=== PATIENT | male | born 1940 | race Caucasian/White ===

== ENCOUNTER 2017-08-03 16:09 | Inpatient (IN) | payer MEDICARE, OTHER ==
[2017-08-03] MEDS: CEFEPIME 2GM/50 ML (PMX) 50 ML IVPB (16:30)
[2017-08-03] MEDS ORDERED: ACETAMINOPHEN 325 MG TAB PO (17:00)
[2017-08-03] MEDS ORDERED: ONDANSETRON 4 MG INJ IV (17:00)
[2017-08-03] MEDS: ACETAMINOPHEN 325 MG TAB PO (17:32)
[2017-08-03] MEDS: SOD CHLORIDE 0.9% 1,000 ML IV (17:33)
[2017-08-03 17:41] LABS: WHITE BLOOD COUNT 40.7 10^3/ul (4.8-10.8)
[2017-08-03 17:41] LABS: ABNORMAL IP MESSAGE 1; HEMATOCRIT 31.2 % (42.0-52.0); HEMOGLOBIN 10.2 g/dl (14.0-18.0); MEAN CORPUSCULAR HEMOGLOBIN 29.2 pg (29.0-33.0); MEAN CORPUSCULAR HGB CONC 32.7 g/dl (32.0-37.0); MEAN CORPUSCULAR VOLUME 89.4 fl (82.0-101.0); MEAN PLATELET VOLUME 8.7 fl (7.4-10.4); PLATELET COUNT 124 10^3/UL (140-415); POSITIVE DIFF @See below; RED BLOOD COUNT 3.49 10^6/ul (4.70-6.10); RED CELL DISTRIBUTION WIDTH 15.2 % (11.5-14.5)
[2017-08-03 17:54] LABS: ADD MAN DIFF? YES
[2017-08-03] MEDS: VANCOMYCIN 1 GM (PMX) 250 ML IVPB (18:00)
[2017-08-03] MEDS: SODIUM CHLORIDE 0.9% 1L BAG IV* (18:01)
[2017-08-03 18:02] LABS: ANION GAP 11 (8-16); BLOOD UREA NITROGEN 12 mg/dl (7-20); CARBON DIOXIDE 25 mmol/L (21-31); CHLORIDE 101 mmol/L (97-110); CREATININE 0.79 mg/dl (0.61-1.24); GLUCOSE 273 mg/dl (70-220); MAGNESIUM 1.6 mg/dl (1.7-2.5); PHOSPHORUS 2.6 mg/dl (2.5-4.9); POTASSIUM 4.3 mmol/L (3.5-5.1); SODIUM 133 mmol/L (135-144); URIC ACID 4.6 mg/dl (3.1-7.9)
[2017-08-03 18:10] LABS: LACTIC ACID 2.4 mmol/L (0.5-2.0)
[2017-08-03 18:20] LABS: TROPONIN-I < 0.010 ng/ml (0.000-0.120)
[2017-08-03 18:50] LABS: BAND NEUTROPHILS #M 0.8 10^3/ul (0.0-0.6); BAND NEUTROPHILS % (M) 2 % (0-4); PLATELET ESTIMATE DECREASED; PLATELET MORPHOLOGY COMMENT @See below; POIKILOCYTOSIS 1+ (0-0); SEG NEUT #M 40.2 10^3/ul (1.6-7.5); SEGMENTED NEUTROPHILS (M) % 98 % (39-77); SMUDGE%M 7 % (0-0)
[2017-08-03 21:42] LABS: LACTIC ACID 1.2 mmol/L (0.5-2.0)
[2017-08-03 23:19] LABS: LACTIC ACID 1.4 mmol/L (0.5-2.0)
[2017-08-03 23:33] LABS: CREATINE KINASE 31 IU/L (23-200)
[2017-08-03 23:44] LABS: CK INDEX 0.7; TROPONIN-I 0.017 ng/ml (0.000-0.120)
[2017-08-03 23:45] LABS: CK-MB < 0.22 ng/ml (0.0-2.4)
[2017-08-04] MEDS ORDERED: [UNRECOGNIZED DRUG - OTHER] PO
[2017-08-04 05:04] LABS: WHITE BLOOD COUNT 32.5 10^3/ul (4.8-10.8)
[2017-08-04 05:04] LABS: ABNORMAL IP MESSAGE 1; HEMATOCRIT 33.8 % (42.0-52.0); HEMOGLOBIN 10.6 g/dl (14.0-18.0); MEAN CORPUSCULAR HGB CONC 31.4 g/dl (32.0-37.0); MEAN CORPUSCULAR VOLUME 92.3 fl (82.0-101.0); MEAN PLATELET VOLUME 9.3 fl (7.4-10.4); PLATELET COUNT 112 10^3/UL (140-415); POSITIVE DIFF @See below; RED BLOOD COUNT 3.66 10^6/ul (4.70-6.10); RED CELL DISTRIBUTION WIDTH 15.2 % (11.5-14.5)
[2017-08-04 05:25] LABS: ADD MAN DIFF? YES
[2017-08-04 05:27] LABS: ALANINE AMINOTRANSFERASE 24 IU/L (13-69); ALBUMIN 2.8 g/dl (3.3-4.9); ALBUMIN/GLOBULIN RATIO 0.84; ALKALINE PHOSPHATASE 160 IU/L (42-121); ANION GAP 16 (8-16); ASPARTATE AMINO TRANSFERASE 21 IU/L (15-46); BILIRUBIN,INDIRECT 0.6 mg/dl (0-1.1); BILIRUBIN,TOTAL 0.6 mg/dl (0.2-1.3); BLOOD UREA NITROGEN 15 mg/dl (7-20); CALCIUM 8.3 mg/dl (8.4-10.2); CARBON DIOXIDE 23 mmol/L (21-31); CHLORIDE 109 mmol/L (97-110); POTASSIUM 5.5 mmol/L (3.5-5.1); SODIUM 142 mmol/L (135-144); TOTAL PROTEIN 6.1 g/dl (6.1-8.1)
[2017-08-04] MEDS: ACETAMINOPHEN 325 MG TAB PO (05:28)
[2017-08-04 05:30] LABS: CREATINE KINASE 30 IU/L (23-200)
[2017-08-04 05:36] LABS: CK INDEX 1.5; TROPONIN-I 0.018 ng/ml (0.000-0.120)
[2017-08-04 05:38] LABS: CK-MB 0.44 ng/ml (0.0-2.4); GLUCOSE 446 mg/dl (70-220)
[2017-08-04] MEDS: INSULIN ASPART [NOVOLOG] 3 ML PEN SC ×5 (06:22→21:00)
[2017-08-04] MEDS ORDERED: DEXTROSE 50% 50 ML SYRINGE IV ×2 (06:30)
[2017-08-04] MEDS ORDERED: GLUCAGON 1 MG INJ IM (06:30)
[2017-08-04] MEDS ORDERED: GLUCOSE GEL 15 GRAM TUBE BUCCAL (06:30)
[2017-08-04] MEDS ORDERED: GLUCOSE GEL 15 GRAM TUBE PO ×2 (06:30)
[2017-08-04 06:36] LABS: ANISOCYTOSIS 1+ (0-0); BAND NEUTROPHILS #M 0.6 10^3/ul (0.0-0.6); BAND NEUTROPHILS % (M) 2 % (0-4); BURR CELLS 1+ (0-0); EOSINOPHILS % (M) 2 % (0-7); LYMPHOCYTES #M 0.3 10^3/ul (0.8-2.9); LYMPHOCYTES % (M) 1 % (15-51); OVALOCYTES 1+ (0-0); PLATELET ESTIMATE DECREASED; POIKILOCYTOSIS 2+ (0-0); POLYCHROMASIA 1+ (0-0); SEG NEUT #M 31.1 10^3/ul (1.6-7.5); SEGMENTED NEUTROPHILS (M) % 95 % (39-77); SMUDGE%M 4 % (0-0)
[2017-08-04 06:40] LABS: CANCER ANTIGEN 19-9 < 1.4 U/ml (0.0-37.0)
[2017-08-04] MEDS ORDERED: VANCOMYCIN IV PER PHARMACY XX (08:00)
[2017-08-04] MEDS: SOD CHLORIDE 0.9% 100 ML (08:20)
[2017-08-04] MEDS: IODIXANOL LOCM 100 ML BTL (08:20)
[2017-08-04] MEDS: metFORMIN 500 MG TAB PO ×2 (09:34→18:09)
[2017-08-04] MEDS: SOLIFENACIN 5 MG TAB PO (09:34)
[2017-08-04] MEDS: METOPROLOL 25 MG TAB PO (09:35)
[2017-08-04] MEDS: TIMOLOL 0.5% 5 ML OPH BOTH EYES ×3 (09:35→21:36)
[2017-08-04] MEDS: INSULIN GLARGINE [LANtus] 3 ML PEN SC (11:18)
[2017-08-04] MEDS: LOSARTAN 50 MG TAB PO ×2 (12:30→21:38)
[2017-08-04] MEDS ORDERED: CEFEPIME 1GM/50 ML (PMX) 50 ML IVPB (12:30)
[2017-08-04] MEDS: PANTOPRAZOLE (EC) 40 MG TAB PO (13:19)
[2017-08-04] MEDS: ENOXAPARIN 40 MG/0.4 ML SYG SC (13:23)
[2017-08-04 15:43] LABS: INR 1.49; PROTIME 18.3 Sec (11.9-14.9); PT RATIO 1.4
[2017-08-04] MEDS: TAMSULOSIN (SR) 0.4 MG CAP PO (21:37)
[2017-08-04] MEDS: ACCU-CHEK XX (22:03)
[2017-08-05 05:43] LABS: WHITE BLOOD COUNT 32.7 10^3/ul (4.8-10.8)
[2017-08-05 05:43] LABS: ABNORMAL IP MESSAGE 1; HEMATOCRIT 32.1 % (42.0-52.0); HEMOGLOBIN 10.4 g/dl (14.0-18.0); MEAN CORPUSCULAR HEMOGLOBIN 29.6 pg (29.0-33.0); MEAN CORPUSCULAR HGB CONC 32.4 g/dl (32.0-37.0); MEAN CORPUSCULAR VOLUME 91.5 fl (82.0-101.0); MEAN PLATELET VOLUME 9.4 fl (7.4-10.4); PLATELET COUNT 169 10^3/UL (140-415); POSITIVE DIFF @See below; RED BLOOD COUNT 3.51 10^6/ul (4.70-6.10); RED CELL DISTRIBUTION WIDTH 15.2 % (11.5-14.5)
[2017-08-05 06:13] LABS: ADD MAN DIFF? YES
[2017-08-05 06:15] LABS: ANION GAP 6 (8-16); BLOOD UREA NITROGEN 21 mg/dl (7-20); CALCIUM 8.7 mg/dl (8.4-10.2); CARBON DIOXIDE 29 mmol/L (21-31); CHLORIDE 105 mmol/L (97-110); CREATININE 0.89 mg/dl (0.61-1.24); GLUCOSE 169 mg/dl (70-220); MAGNESIUM 2.1 mg/dl (1.7-2.5); PHOSPHORUS 3.4 mg/dl (2.5-4.9); POTASSIUM 4.3 mmol/L (3.5-5.1); SODIUM 136 mmol/L (135-144)
[2017-08-05] MEDS: PANTOPRAZOLE (EC) 40 MG TAB PO (06:43)
[2017-08-05 08:13] LABS: ANISOCYTOSIS 1+ (0-0); BAND NEUTROPHILS #M 1.9 10^3/ul (0.0-0.6); BAND NEUTROPHILS % (M) 6 % (0-4); LYMPHOCYTES #M 1.3 10^3/ul (0.8-2.9); LYMPHOCYTES % (M) 4 % (15-51); PLATELET ESTIMATE NORMAL; POIKILOCYTOSIS 2+ (0-0); SEG NEUT #M 30.1 10^3/ul (1.6-7.5); SEGMENTED NEUTROPHILS (M) % 90 % (39-77); SMUDGE%M 3 % (0-0); TOXIC GRANULATION 1+ (0-0)
[2017-08-05] MEDS: TIMOLOL 0.5% 5 ML OPH BOTH EYES ×2 (08:34→20:33)
[2017-08-05] MEDS: METOPROLOL 25 MG TAB PO (08:34)
[2017-08-05] MEDS: LOSARTAN 50 MG TAB PO ×2 (08:34→20:25)
[2017-08-05] MEDS: SOLIFENACIN 5 MG TAB PO (08:34)
[2017-08-05] MEDS: metFORMIN 500 MG TAB PO ×2 (08:35→17:59)
[2017-08-05] MEDS: INSULIN ASPART [NOVOLOG] 3 ML PEN SC ×4 (08:41→20:29)
[2017-08-05] MEDS: INSULIN GLARGINE [LANtus] 3 ML PEN SC (08:45)
[2017-08-05] MEDS: ENOXAPARIN 40 MG/0.4 ML SYG SC (12:55)
[2017-08-05] MEDS: TAMSULOSIN (SR) 0.4 MG CAP PO (20:23)
[2017-08-06] MEDS: ACCU-CHEK XX (02:18)
[2017-08-06 05:14] LABS: ABNORMAL IP MESSAGE 1; HEMATOCRIT 31.4 % (42.0-52.0); HEMOGLOBIN 10.2 g/dl (14.0-18.0); MEAN CORPUSCULAR HEMOGLOBIN 29.2 pg (29.0-33.0); MEAN CORPUSCULAR HGB CONC 32.5 g/dl (32.0-37.0); MEAN PLATELET VOLUME 9.4 fl (7.4-10.4); PLATELET COUNT 145 10^3/UL (140-415); POSITIVE DIFF @See below; RED BLOOD COUNT 3.49 10^6/ul (4.70-6.10); RED CELL DISTRIBUTION WIDTH 15.1 % (11.5-14.5)
[2017-08-06 05:14] LABS: WHITE BLOOD COUNT 8.8 10^3/ul (4.8-10.8)
[2017-08-06 05:23] LABS: ADD MAN DIFF? YES
[2017-08-06 05:45] LABS: ANION GAP 6 (8-16); BLOOD UREA NITROGEN 19 mg/dl (7-20); CALCIUM 8.6 mg/dl (8.4-10.2); CARBON DIOXIDE 31 mmol/L (21-31); CHLORIDE 102 mmol/L (97-110); CREATININE 0.84 mg/dl (0.61-1.24); GLUCOSE 101 mg/dl (70-220); MAGNESIUM 1.9 mg/dl (1.7-2.5); PHOSPHORUS 3.6 mg/dl (2.5-4.9); POTASSIUM 4.4 mmol/L (3.5-5.1); SODIUM 135 mmol/L (135-144)
[2017-08-06] MEDS: PANTOPRAZOLE (EC) 40 MG TAB PO (05:45)
[2017-08-06] MEDS: INSULIN ASPART [NOVOLOG] 3 ML PEN SC ×4 (07:50→20:19)
[2017-08-06] MEDS: LOSARTAN 50 MG TAB PO ×2 (08:48→20:10)
[2017-08-06] MEDS: TIMOLOL 0.5% 5 ML OPH BOTH EYES ×2 (08:48→20:09)
[2017-08-06] MEDS: metFORMIN 500 MG TAB PO ×2 (08:49→18:13)
[2017-08-06] MEDS: METOPROLOL 25 MG TAB PO (08:49)
[2017-08-06] MEDS: SOLIFENACIN 5 MG TAB PO (08:49)
[2017-08-06] MEDS: INSULIN GLARGINE [LANtus] 3 ML PEN SC (08:54)
[2017-08-06 10:04] LABS: BAND NEUTROPHILS #M 0.1 10^3/ul (0.0-0.6); BAND NEUTROPHILS % (M) 2 % (0-4); EOSINOPHILS % (M) 1 % (0-7); GIANT THROMBO% (M) 2 % (0-0); LYMPHOCYTES #M 1.7 10^3/ul (0.8-2.9); LYMPHOCYTES % (M) 20 % (15-51); MONOCYTES % (M) 1 % (0-11); PLATELET ESTIMATE NORMAL; REACTIVE LYMPHOCYTES% (M) 1 % (0-0); SEG NEUT #M 6.6 10^3/ul (1.6-7.5); SEGMENTED NEUTROPHILS (M) % 75 % (39-77); SMUDGE%M 9 % (0-0)
[2017-08-06] MEDS: TAMSULOSIN (SR) 0.4 MG CAP PO (20:10)
[2017-08-07] MEDS: ACCU-CHEK XX (02:05)
[2017-08-07] MEDS: PANTOPRAZOLE (EC) 40 MG TAB PO (06:00)
[2017-08-07] MEDS: INSULIN ASPART [NOVOLOG] 3 ML PEN SC ×4 (07:50→20:42)
[2017-08-07] MEDS: metFORMIN 500 MG TAB PO ×2 (07:50→17:53)
[2017-08-07] MEDS: LOSARTAN 50 MG TAB PO ×2 (08:30→20:40)
[2017-08-07] MEDS: METOPROLOL 25 MG TAB PO (08:30)
[2017-08-07] MEDS: SOLIFENACIN 5 MG TAB PO (08:30)
[2017-08-07] MEDS: TIMOLOL 0.5% 5 ML OPH BOTH EYES ×2 (09:22→20:39)
[2017-08-07] MEDS: INSULIN GLARGINE [LANtus] 3 ML PEN SC (09:23)
[2017-08-07 12:02] LABS: INR 0.99; PROTIME 13.2 Sec (11.9-14.9)
[2017-08-07] MEDS: TAMSULOSIN (SR) 0.4 MG CAP PO (20:40)
[2017-08-08] MEDS: ACCU-CHEK XX (01:53)
[2017-08-08] MEDS: PANTOPRAZOLE (EC) 40 MG TAB PO (06:00)
[2017-08-08 07:06] LABS: ADD MAN DIFF? NO
[2017-08-08 07:08] LABS: WHITE BLOOD COUNT 13.9 10^3/ul (4.8-10.8)
[2017-08-08 07:08] LABS: BASOPHILS % 0.1 % (0.0-2.0); EOSINOPHILS # 0.1 10^3/ul (0.0-0.5); EOSINOPHILS % 0.6 % (0.0-7.0); HEMATOCRIT 39.1 % (42.0-52.0); HEMOGLOBIN 12.3 g/dl (14.0-18.0); LYMPHOCYTES # 2.8 10^3/ul (0.8-2.9); MEAN CORPUSCULAR HEMOGLOBIN 28.5 pg (29.0-33.0); MEAN CORPUSCULAR HGB CONC 31.5 g/dl (32.0-37.0); MEAN CORPUSCULAR VOLUME 90.5 fl (82.0-101.0); MEAN PLATELET VOLUME 9.4 fl (7.4-10.4); MONOCYTE # 0.7 10^3/ul (0.3-0.9); NEUTROPHIL # 10.2 10^3/ul (1.6-7.5); NEUTROPHILS % 73.7 % (39.0-77.0); PLATELET COUNT 159 10^3/UL (140-415); RED BLOOD COUNT 4.32 10^6/ul (4.70-6.10); RED CELL DISTRIBUTION WIDTH 14.8 % (11.5-14.5)
[2017-08-08 07:35] LABS: ANION GAP 13 (8-16); BLOOD UREA NITROGEN 16 mg/dl (7-20); CALCIUM 9.3 mg/dl (8.4-10.2); CARBON DIOXIDE 29 mmol/L (21-31); CHLORIDE 101 mmol/L (97-110); CREATININE 0.91 mg/dl (0.61-1.24); GLUCOSE 156 mg/dl (70-220); MAGNESIUM 1.8 mg/dl (1.7-2.5); PHOSPHORUS 3.7 mg/dl (2.5-4.9); POTASSIUM 4.5 mmol/L (3.5-5.1); SODIUM 138 mmol/L (135-144)
[2017-08-08] MEDS ORDERED: EPHEDrine SULFATE 50 MG/5 ML SYG (08:18)
[2017-08-08] MEDS ORDERED: SUCCINYLCHOLINE CHLORIDE 100 MG/5 ML SYG IV (08:18)
[2017-08-08] MEDS ORDERED: PHENYLephrine (100 MCG/ML) 5ML SYG (08:19)
[2017-08-08] MEDS: FENTAnyl 50 MCG/ML VIAL (08:27)
[2017-08-08] MEDS: MIDAZOLAM 1 MG/ML 2 ML INJ (08:27)
[2017-08-08] MEDS: PROPOFOL 0 ML (08:33)
[2017-08-08] MEDS: LIDOCAINE 1% (MDV) 10 ML INJ (08:50)
[2017-08-08] MEDS ORDERED: HYDROmorphONE 1 MG/5 ML IV SYRINGE IV ×3 (09:00)
[2017-08-08] MEDS ORDERED: ONDANSETRON 4 MG INJ IV (09:00)
[2017-08-08] MEDS ORDERED: OXYCODONE/ACETAMINOPHEN (5/325) TAB PO ×2 (09:00)
[2017-08-08] MEDS: LOSARTAN 50 MG TAB PO ×2 (10:50→21:28)
[2017-08-08] MEDS: metFORMIN 500 MG TAB PO ×2 (10:50→17:43)
[2017-08-08] MEDS: METOPROLOL 25 MG TAB PO (10:50)
[2017-08-08] MEDS: SOLIFENACIN 5 MG TAB PO (10:51)
[2017-08-08] MEDS: TIMOLOL 0.5% 5 ML OPH BOTH EYES ×2 (10:52→21:28)
[2017-08-08] MEDS: INSULIN ASPART [NOVOLOG] 3 ML PEN SC ×4 (10:56→21:00)
[2017-08-08] MEDS: INSULIN GLARGINE [LANtus] 3 ML PEN SC (10:57)
[2017-08-08] MEDS: TAMSULOSIN (SR) 0.4 MG CAP PO (21:29)
[2017-08-09] MEDS: ACCU-CHEK XX (02:20)
[2017-08-09 05:35] LABS: ADD MAN DIFF? NO
[2017-08-09 05:49] LABS: WHITE BLOOD COUNT 11.8 10^3/ul (4.8-10.8)
[2017-08-09 05:49] LABS: BASOPHILS % 0.3 % (0.0-2.0); EOSINOPHILS # 0.2 10^3/ul (0.0-0.5); EOSINOPHILS % 1.7 % (0.0-7.0); HEMATOCRIT 31.6 % (42.0-52.0); HEMOGLOBIN 10.2 g/dl (14.0-18.0); LYMPHOCYTES # 2.6 10^3/ul (0.8-2.9); LYMPHOCYTES % 21.8 % (15.0-51.0); MEAN CORPUSCULAR HGB CONC 32.3 g/dl (32.0-37.0); MEAN CORPUSCULAR VOLUME 89.8 fl (82.0-101.0); MEAN PLATELET VOLUME 9.4 fl (7.4-10.4); MONOCYTES % 8.1 % (0.0-11.0); NEUTROPHILS % 67.7 % (39.0-77.0); PLATELET COUNT 119 10^3/UL (140-415); RED BLOOD COUNT 3.52 10^6/ul (4.70-6.10); RED CELL DISTRIBUTION WIDTH 14.7 % (11.5-14.5)
[2017-08-09] MEDS: PANTOPRAZOLE (EC) 40 MG TAB PO (05:54)
[2017-08-09] MEDS: INSULIN ASPART [NOVOLOG] 3 ML PEN SC ×2 (07:50→11:40)
[2017-08-09] MEDS: INSULIN GLARGINE [LANtus] 3 ML PEN SC (08:40)
[2017-08-09] MEDS: metFORMIN 500 MG TAB PO (08:41)
[2017-08-09] MEDS: TIMOLOL 0.5% 5 ML OPH BOTH EYES (08:41)
[2017-08-09] MEDS: SOLIFENACIN 5 MG TAB PO (08:41)
[2017-08-09] MEDS: METOPROLOL 25 MG TAB PO (09:00)
[2017-08-09] MEDS: LOSARTAN 50 MG TAB PO (09:00)
== END 2017-08-09 12:59 | disposition home health service (06) | DRG 871 ==
LOC: E/R 16:09 → MS1 16:38
PROC: 0BBJ3ZX Excision of Left Lower Lung Lobe, Percutaneous Approach, Diagnostic (ICD-10-PCS; principal; 2017-08-08)
DX: A41.9 Sepsis, unspecified organism (principal); J18.9 Pneumonia, unspecified organism; J96.01 Acute respiratory failure with hypoxia; C25.9 Malignant neoplasm of pancreas, unspecified; R64 Cachexia; R65.20 Severe sepsis without septic shock; R91.8 Other nonspecific abnormal finding of lung field; D64.9 Anemia, unspecified; I10 Essential (primary) hypertension; E87.5 Hyperkalemia; N40.0 Benign prostatic hyperplasia without lower urinary tract symptoms; Z68.20 Body mass index [BMI] 20.0-20.9, adult
CPT/HCPCS: 36415; 71045; 71260; 74177; 77012; 80048; 80053; 82550; 82553; 82962; 83605; 83735; 84100; 84484; 84560; 85025; 85610; 85730; 86301; 86850; 86900; 86901; 87040; 88307; 88313; 88341; 88342; 93005; 96365; 96366; 96375; 99291-25